=== PATIENT | male | born 1990 | race Caucasian/White ===

== ENCOUNTER 2022-08-30 07:32 | Outpatient (CLI) | payer OTHER, SELFPAY ==
--- NOTE | 2022-09-17 14:43 | WPDHOMESLEEP ---
Sleep Study - Home Unattended Date of Study: 08/30/22 Ordering Provider: Jolie Kim NP Interpreting Provider: Alayna Langston, DO Home Sleep Study Type: Watch PAT Height: 1.88 m Weight: 136.078 kg Body Mass Index: 38.5 Neck Circumference (inches): 19.5 [place]: 0 Reason for Sleep Study Daytime hypersomnia Sleep History The patient is a 32-year-old male with GERD, hyperlipidemia, headaches and history of tobacco use that had a sleep study ordered by his primary care for evaluation of sleep apnea. The patient occasionally awakens from sleep short of breath. He occasionally awakens at night with heartburn, belching or cough. He occasionally snores loud enough that others complain. He occasionally has trouble sleeping when he has a cold. He denies waking up gasping for air throughout the night. He denies having breathing problems at night observed by himself or others. He frequently sweats excessively at night. He occasionally has heart palpitations or irregular heartbeats during the night. He rarely falls asleep during the day and never while driving. He occasionally has trouble at school or work due to sleepiness. He rarely feels unable to move while waking up or falling asleep. He occasionally experiences vivid dreamlike scenes upon awakening or falling asleep. He denies feeling afraid of going to sleep. He rarely has nightmares. He rarely remembers his dreams. He constantly has thoughts racing through his mind. He frequently feels sad, depressed or anxious. He frequently has muscular tension. He occasionally notices parts of his body jerk. He rarely kicks during the night. He frequently has crawling and aching feelings in his legs and occasionally has leg pain during the night. He occasionally grinds his teeth during sleep and occasionally awakens with morning jaw pain. He frequently is bothered by pain during the day but rarely awakened by pain during the night. He constantly wakes up feeling stiff in the morning. He frequently wakes up with sore or achy muscles. He constantly wakes up with pain in the neck, spine or other joints. The patient goes to bed at 9:30 a.m. on weekdays and his bedtime is variable in the weekends. He can take him 30 minutes to an hour to fall asleep. He does wake up throughout the night to urinate. He wakes up around 1:00 a.m. and between 3-4:30 a.m. on weekdays and weekends. He typically gets 7-8 hours of sleep per night. He will stay in bed for 30 minutes after waking up in the morning. He currently lives with his daughter half of the time. He does not consume any caffeinated beverages within 2 hours of bedtime. He does not engage in physical exercise before bedtime. He will occasionally read and watch television before falling asleep. He denies taking naps in the afternoon or the evening. He drinks 1 caffeinated beverage per day. He quit smoking several years ago. He denies alcohol and recreational drug use. [facility] Past Medical History Medical History Acute non-recurrent maxillary sinusitis BMI 37.0-37.9, adult Chronic GERD Elevated bilirubin Elevated fasting glucose Elevated liver enzymes Encounter to establish care Fatigue Frequent headaches GERD (gastroesophageal reflux disease) Hyperlipidemia Hypersomnia Left shoulder pain Left upper quadrant pain Otitis externa Otitis media of both ears Right knee pain Screening for diabetes mellitus Snoring Urinary frequency Weakness Family History Family History Mother Lupus Sibling Depression Anxiety Thyroid disease Grandparent Diabetes mellitus Hypertension Heart disease Social History Social History Smoking status: Never smoker Alcohol intake: never Substance use: current Substance use type: marijuana Spiritual care concerns: N
[2022-09-17 14:56] VITALS: BMI 38.5
--- NOTE | 2022-11-14 10:43 | SLEEP ---
encouraged pt to call office and get results
== END 2022-08-31 13:51 | disposition home or self-care (01) ==
PROVIDERS: PCP Nurse Practitioner Family; Visit Provider Nurse Practitioner Family
DX: G47.10 Hypersomnia, unspecified (principal); R06.83 Snoring; G47.33 Obstructive sleep apnea (adult) (pediatric)
CPT/HCPCS: 95800

== ENCOUNTER 2022-08-31 01:54 | Day surgery (SDC) | payer OTHER, SELFPAY ==
[2022-08-14 14:26] VITALS: BMI 38.5
[2022-08-31 06:48] VITALS: BP 159/100; PULSE 82; RESP 18; TEMP 36.3; O2SAT 97
[2022-08-31] MEDS: LACTATED RINGERS 1,000 ML 150 ML IV CONT (07:09)
--- NOTE | 2022-08-31 07:32 | WPDANESEPPF ---
Anes - Initial Pre Proc Eval Procedure: Operation Date: 08/31/22 08:00 Proposed Procedures p Esophagogastroduodenoscopy EGD - Daryl Jennings MD Date/Time: 08/31/22 07:32 Surgeon: Daryl Jennings MD Pre Op Diagnosis: GERD Patient Data Age: 32 Gender: M Height: 1.88 m Weight: 136.5 kg Last Vital Signs Temp 97.4 F L 08/31/22 06:48 Pulse 82 08/31/22 06:48 Resp 18 08/31/22 06:48 BP 159/100 H 08/31/22 06:48 Pulse Ox 97 08/31/22 06:48 O2 Del Method Room Air 08/31/22 06:48 Allergies Allergy/AdvReac Type Severity Reaction Status Date / Time cats Allergy Unknown Unknown Uncoded 08/31/22 06:48 Home Medications Medication Instructions Recorded Confirmed Type omeprazole 20 mg tablet,delayed 20 mg PO DAILY 3 months #90 tabs 07/19/22 08/14/22 Rx release mecobalamin (vitamin B12) 1,000 1,000 mcg PO DAILY 07/27/22 08/14/22 History mcg chewable tablet azithromycin 250 mg tablet See Rx Instructions PO .COMPLEX #6 08/28/22 Rx tabs Patient hx anesthesia problems: none Family hx anesthesia problems: none Results Review: All pre-operative results and documents have been reviewed as part of the pre-operative evaluation. [facility] Past Medical History Medical History (Updated 08/28/22 @ 13:19 by Eddi Zhou MD) Acute non-recurrent maxillary sinusitis BMI 37.0-37.9, adult Chronic GERD Elevated bilirubin Elevated fasting glucose Elevated liver enzymes Encounter to establish care Fatigue Frequent headaches GERD (gastroesophageal reflux disease) Hyperlipidemia Hypersomnia Left shoulder pain Left upper quadrant pain Right knee pain Screening for diabetes mellitus Snoring Urinary frequency Weakness Family History Family History Mother Lupus Sibling Depression Anxiety Thyroid disease Grandparent Diabetes mellitus Hypertension Heart disease Social History Social History Smoking status: Never smoker Alcohol intake: never Substance use: never Spiritual care concerns: No Anes - Eval Final PreProcedure Day of Procedure 08/31/22 07:32 Patient weight: obese Heart: regular rate and rhythm Lungs: clear to auscultation Airway: Mallampati scale class III Neurological: alert and oriented Last oral intake: >/= 8 hours ASA classification: III Emergent: no Anesthetic plan: proceed Anesthesia type and monitoring: general GIVS and standard monitoring Results Review: All pre-operative results and documents have been reviewed as part of the pre-operative evaluation. Informed Consent: The patient's anesthetic plan and its attendant risks and benefits were discussed with the patient/family/POA. Questions were solicited and answers provided to the satisfaction of the patient/family/POA.
--- NOTE | 2022-08-31 07:53 | PM.HPGS ---
History of Present Illness History of Present Illness Consent: Risks, benefits, and alternatives have been discussed and questions answered. Patient agrees to proceed with procedure. Chief complaint: GERD Narrative: Roldan Fuller is a 32 year old male with gerd controlled on ppi but never had egd Review of Systems Constitutional: Constitutional: Denies headache(s) and Denies weakness Eyes: Eyes: Denies blurry vision ENT: Reports Normal hearing present, Denies headache(s) and Denies neck pain Cardiovascular: Cardiovascular: Denies chest pain and Denies dyspnea Respiratory: Respiratory: Denies dyspnea Gastrointestinal: Gastrointestinal: Reports no additional gastrointestinal complaints Genitourinary: Genitourinary: Denies dysuria Musculoskeletal: Musculoskeletal: Denies neck pain Integumentary/Breasts: Skin/Breast: Denies dry skin Neurologic: Reports Normal hearing present, Denies headache(s) and Denies weakness Psychiatric: Psychiatric: Denies anxiety Endocrine: Endocrine: Denies change in body appearance Hematologic/Lymphatic: Hematologic/Lymphatic: Denies easy bleeding Allergic/Immunologic: Allergic/Immunologic: Denies urticaria PMFSH Past Medical History Medical History (Updated 08/28/22 @ 13:19 by Eddi Zhou MD) Acute non-recurrent maxillary sinusitis BMI 37.0-37.9, adult Chronic GERD Elevated bilirubin Elevated fasting glucose Elevated liver enzymes Encounter to establish care Fatigue Frequent headaches GERD (gastroesophageal reflux disease) Hyperlipidemia Hypersomnia Left shoulder pain Left upper quadrant pain Right knee pain Screening for diabetes mellitus Snoring Urinary frequency Weakness Family History Family History Mother Lupus Sibling Depression Anxiety Thyroid disease Grandparent Diabetes mellitus Hypertension Heart disease Social History Social History Smoking status: Never smoker Alcohol intake: never Substance use: never Spiritual care concerns: No Meds Home Medications and Allergies Home Medications Medication Instructions Recorded Confirmed Type omeprazole 20 mg tablet,delayed 20 mg PO DAILY 3 months #90 tabs 07/19/22 08/14/22 Rx release mecobalamin (vitamin B12) 1,000 1,000 mcg PO DAILY 07/27/22 08/14/22 History mcg chewable tablet azithromycin 250 mg tablet See Rx Instructions PO .COMPLEX #6 08/28/22 Rx tabs Allergies Allergy/AdvReac Type Severity Reaction Status Date / Time cats Allergy Unknown Unknown Uncoded 08/31/22 06:48 Vital Signs Vital Signs - 24 hr 08/31/22 06:48 Temperature 97.4 F L Pulse Rate 82 Respiratory Rate 18 Blood Pressure 159/100 H Pulse Oximetry 97 Oxygen Delivery Room Air Exam Const: General: comfortable and no acute distress HENMT: Face/Nose/Sinus: Normal nares present Eyes: General: appearance normal, both eyes and all related structures Neck: Neck: no JVD Resp: Auscultation: clear to auscultation bilaterally Cardio: Rate: regular rate Rhythm: regular rhythm GI: Inspection: non-distended GI Palp: Yes Soft to palpation Skin: General skin exam: normal color Neuro: General: gait normal Speech: normal speech Extrem: General: normal to inspection Psych: Mental Status: mental status grossly normal Assessment and Plan Assessment and plan (1) Chronic GERD: Code(s): K21.9 - Gastro-esophageal reflux disease without esophagitis Status: Acute Assessment and Plan: egd with bx already on ppi
[2022-08-31 08:11] VITALS: BP 111/69; PULSE 78; RESP 18; O2SAT 99
[2022-08-31 08:21] VITALS: BP 123/89; PULSE 76; RESP 16; O2SAT 96
[2022-08-31 08:31] VITALS: BP 125/78; PULSE 77; RESP 17; O2SAT 97
== END 2022-08-31 08:33 | disposition home or self-care (01) ==
PROVIDERS: PCP Nurse Practitioner Family; Visit Provider Internal Medicine Gastroenterology
PROC: 0DJ08ZZ Inspection of Upper Intestinal Tract, Via Natural or Artificial Opening Endoscopic (ICD-10-PCS; CPT 43235; principal; 2022-08-31 08:00)
DX: K21.9 Gastro-esophageal reflux disease without esophagitis (principal); K29.70 Gastritis, unspecified, without bleeding; E66.9 Obesity, unspecified; Z68.38 Body mass index [BMI] 38.0-38.9, adult
CPT/HCPCS: 43239; 88305; J2704; J7120

== ENCOUNTER → 2023-01-02 15:21 | Outpatient (CLI) | payer OTHER, SELFPAY ==
--- NOTE | ~2023-01-02 | MR_ITS ---
EXAMINATION: MR shoulder LT wo con DATE: 01/02/2023 16:21 INDICATION: Left shoulder pain. TECHNIQUE: Magnetic resonance imaging (MRI) of the left shoulder was performed without intravenous co ntrast. COMPARISON: Left shoulder radiographs 05/08/2015 FINDINGS: Coracoacromial arch: The acromion undersurface is curved in morphology (type II). The acromioclavicular joint is normal. T here is a physiologic volume of fluid in subacromial/subdeltoid bursa. Rotator cuff: There is mild supraspinatus tendinopathy. Infraspinatus, teres minor, and subscapularis tendons are n ormal. The rotator cuff muscle bellies are normal. Biceps tendon and glenoid labrum: Biceps tendon is in bicipital groove. Intra-articular biceps tendon is normal. The glenoid labrum is normal. Fluid: There is no glenohumeral joint effusion. Bones/cartilage: The glenoid cartilage is normal. Humeral head cartilage is normal. IMPRESSION: 1. Mild supraspinatus tendinopathy. No tear. Reviewed, dictated and finalized at location A. [employer]
== END ==
PROVIDERS: PCP Family Medicine; Visit Provider Nurse Practitioner Family
DX: M25.512 Pain in left shoulder (principal)
CPT/HCPCS: 73221